=== PATIENT | female | born 2000 | race Caucasian/White ===

== ENCOUNTER 2019-08-26 09:04 | Emergency (ER) | payer OTHER ==
[2019-08-26 09:08] VITALS: BP 136/56; PULSE 70; TEMP 98.5; BMI 42.4
[2019-08-26 09:31] LABS: PH,URINE 6.5 (5.0-8.0); URINE APPEARANCE CLEAR; URINE BILIRUBIN NEGATIVE (NEGATIVE); URINE COLOR YELLOW; URINE GLUCOSE (UA) NEGATIVE (NEGATIVE); URINE KETONE NEGATIVE (NEGATIVE); URINE LEUK ESTERASE TRACE (NEGATIVE); URINE NITRITE NEGATIVE (NEGATIVE); URINE PROTEIN TRACE (NEGATIVE); URINE UROBILINOGEN 0.2 mg/dL (0.2-1.0)
--- NOTE | 2019-08-26 10:03 | PDOC ---
History of Present Illness - General Chief Complaint: Pain Stated Complaint: ABD PAIN / LT KNEE PAIN Time Seen by Provider: 08/26/19 09:14 History Source: Patient Exam Limitations: Clinical Condition - History of Present Illness Travel History: No Initial Comments: 08/26/19 10:05 Patient with past medical history of PCOS not on meds and hypothyroidism with normal thyroid labs not on meds and remote history of PID present with complaint of 2-day history of suprapubic cramping abdominal pain which has been persistent with one episode of clear vomiting this morning. Patient also reported left thigh pain upon wake this morning radiating to left knee which has resolved now. Patient reported LMP starting yesterday. Denies fever, chills, nausea now, dizziness, weakness. Patient seeking and is sexually active without condoms. Timing/Duration: reports: constant Quality: reports: cramping Abdominal Pain Onset Location: reports: suprapubic Pain Radiation: reports: groin Activities at Onset: reports: none Treatment Prior to Arrive: improves with: other (none) Aggravating Factors: improves with: None Alleviating Factors: improves with: None Past History - Past Medical History Allergies/Adverse Reactions: Allergies Allergy/AdvReac Type Severity Reaction Status Date / Time No Known Allergies Allergy Verified 01/22/15 15:38 Home Medications: Ambulatory Orders No Home Medications 0 dose .ROUTE UTDICT 09/01/12 Ibuprofen 800 mg PO Q8H PRN #12 tablet 08/26/19 COPD: No Thyroid Disease: Yes (HYPO) - Immunization History Immunization Up to Date: Yes - Psycho Social/Smoking Cessation Hx Smoking Status: No Smoking History: Never smoked Number of Cigarettes Smoked Daily: 0 Hx Alcohol Use: No Substance Use Type: None Hx Substance Use Treatment: No Abd/GI Specific PMHX - Complaint Specific PMHX Colitis: No Diverticulitis: No Gall Bladder Disease: No GERD: No Hepatitis: No Irritable Bowel Synd (IBS): No Pancreatitis: No GI Ulcer Disease: No Review of Systems - Review of Systems Able to Perform ROS?: Yes Is the patient limited Lithuanian proficient: No Constitutional: No: Chills, Fever, Malaise HEENTM: No: Symptoms Reported, See HPI, Eye Pain, Blurred Vision, Tearing, Recent change in vision, Double Vision, Cataracts, Ear Pain, Ocular Prothesis, Ear Discharge, Nose Pain, Nose Congestion, Tinnitus, Nose Bleeding, Hearing Loss , Throat Pain, Throat Swelling, Mouth Pain, Dental Problems, Difficulty Swallowing, Mouth Swelling, Other Respiratory: No: Symptoms reported, See HPI, Cough, Orthopnea, Shortness of Breath, SOB with Exertion, SOB at Rest, Stridor, Wheezing, Productive cough, Hemoptysis, Other Cardiac (ROS): No: Symptoms Reported, See HPI, Chest Pain, Edema, Irregular Heart Rate, Lightheadedness, Palpitations, Syncope, Chest Tightness, Other ABD/GI: Yes: Symptoms Reported, See HPI, Nausea (resolved), Vomiting (1 episode clear vomit), Abdominal cramping (suprapubic tenderness). No: Abd. Pain w/ defecation, Blood Streaked Bowels, Constipated, Diarrhea, Difficulty Swallowing , Poor Appetite, Poor Fluid Intake, Rectal Bleeding Musculoskeletal: No: Symptoms Reported Integumentary: No: Symptoms Reported Neurological: No: Symptoms reported, Headache, Numbness, Paresthesia, Weakness, Dizziness All Other Systems: Reviewed and Negative *Physical Exam - Vital Signs Last Vital Signs Temp Pulse Resp BP Pulse Ox 98.5 F 70 18 136/56 L 98 08/26/19 09:06 08/26/19 09:06 08/26/19 09:06 08/26/19 09:06 08/26/19 09:06 - Physical Exam Comments: 08/26/19 10:04 GENERAL: Well developed, well nourished. Awake and alert. No acute distress. HEENT: Normocephalic, atraumatic. PERRLA, EOMI. No conjunctival pallor. Sclera are non-icteric. Moist mucous membranes. Oropharynx is clear. NECK: Supple. Full ROM. CARDIOVASCULAR: Regular rate and rhythm. No murmurs, rubs, or gallops. Distal pulses are 2+ and symmetric. PULMONARY: No evidence of respiratory distress. Lungs clear to auscultation bilaterally. No wheezing, rales or rhonchi. ABDOMINAL: Soft. Mild suprapubic tenderness. Non-distended. No rebound or guarding. No organomegaly. Normoactive bowel sounds. MUSCULOSKELETAL Normal range of motion at all joints. EXTREMITIES: No cyanosis. No clubbing. No edema. No calf tenderness. SKIN: Warm and dry. Normal capillary refill. NEUROLOGICAL: Alert, awake, appropriate. Gait is normal without ataxia. PSYCHIATRIC: Cooperative. Good eye contact. Appropriate mood General Appearance: Yes: Nourished, Appropriately Dressed. No: Apparent Distress ED Treatment Course - LABORATORY CBC & Chemistry Diagram: 08/26/19 09:47 08/26/19 09:47 - ADDITIONAL ORDERS Additional order review: Laboratory Results 08/26/19 08/26/19 09:17 09:17 Urine Color Yellow Urine Appearance Clear Urine pH 6.5 Ur Specific [place] 1.020 Urine Protein Trace Urine Glucose (UA) Negative Urine Ketones Negative Urine Blood 1+ H Urine Nitrite Negative Urine Bilirubin Negative Urine Urobilinogen 0.2 Ur Leukocyte Esterase Trace Urine HCG, Qual Negative Medical Decision Making - Medical Decision Making 08/26/19 10:07 Patient with past medical history of PCOS not on meds and hypothyroidism with normal thyroid labs not on meds and remote history of PID present with complaint of 2-day history of suprapubic cramping abdominal pain which has been persistent with one episode of clear vomiting this morning. Patient also reported left thigh pain upon wake this morning radiating to left knee which has resolved now. Patient reported LMP starting yesterday. Denies fever, chills, nausea now, dizziness, weakness. Patient seeking and is sexually active without condoms. Clinical exam significant for mild tenderness to suprapubic region without guarding or rebound. No tenderness to thigh area, knee or calf muscle. Symptoms likely of ovulatory pain versus UTI and leg pain caused by muscle cramps which has resolved. UA, urine culture, urine test, urine GC and Chl chest ordered. CBC and chemistry lab ordered. Treat based on lab results 08/26/19 11:35 UA shows no acute pathology. hcg neg. pelvic U/S unremarkable. GC/CHL pending. Patient abdominal pains likely ovulatory and stable for discharge on motrin prn for pain with [facility] f/u Discharge - Discharge Information Problems reviewed: Yes Clinical Impression/Diagnosis: Nausea, Dysmenorrhea Abdominal pain Qualifiers: Abdominal location: lower abdomen, unspecified Qualified Code(s): R10.30 - Lower abdominal pain, unspecified Condition: Improved Disposition: HOME - Admission No - Additional Discharge Information Prescriptions: Ibuprofen 800 mg PO Q8H PRN #12 tablet PRN Reason: pain - Follow up/Referral Referrals: Alin Rhodes [Primary Care Provider] - - Patient Discharge Instructions Patient Printed Discharge Instructions: DI for Dysmenorrhea Additional Instructions: Your lab work and ultrasound is normal. Your urine is sent for culture and you will be contacted with culture results. Your abdominal pain was likely caused by menstrual cramps. Take prescribed motrin as needed for pain. Follow-up with [facility] as discussed as soon as possible - Post Discharge Activity
[2019-08-26 10:05] LABS: BASO % 0.2 % (0-2.0); EOS % 0.6 % (0-4.5); HEMATOCRIT 40.8 % (32.4-45.2); HEMOGLOBIN 13.3 GM/dL (10.7-15.3); LYMPH % 11.1 % (8-40); MCH 30.2 pg (25.7-33.7); MCHC 32.7 g/dl (32.0-36.0); MEAN CELL VOLUME 92.4 fl (80-96); MEAN PLT VOLUME 8.2 fl (7.5-11.1); MONO % 4.6 % (3.8-10.2); NEUT % 83.5 % (42.8-82.8); PLATELET COUNT 400 K/MM3 (134-434); RBC 4.42 M/mm3 (3.60-5.2); RDW 14.5 % (11.6-15.6); WHITE BLOOD COUNT 12.4 K/mm3 (4.0-10.0)
[2019-08-26] MEDS ORDERED: ONDANSETRON *ODT* 4 MG TABLET SL ONE (10:28)
[2019-08-26] MEDS ORDERED: IBUPROFEN 400 MG TABLET (FP) PO ONE ×2 (10:28→10:29)
[2019-08-26] MEDS ORDERED: ONDANSETRON *ODT* 4 MG TABLET ONE (10:29)
[2019-08-26 10:42] LABS: ALBUMIN 3.8 g/dl (3.4-5.0); BILIRUBIN,TOTAL 0.4 mg/dL (0.2-1); BLOOD UREA NITROGEN 7.7 mg/dL (7-18); CALCIUM 8.9 mg/dL (8.5-10.1); CREATININE 0.7 mg/dL (0.55-1.3); POTASSIUM 4.5 mmol/L (3.5-5.1); TOT PROT 7.3 g/dl (6.4-8.2)
== END 2019-08-26 11:40 | disposition home or self-care (01) ==
LOC: JER 09:04
DX: N94.6 Dysmenorrhea, unspecified (principal); E03.9 Hypothyroidism, unspecified; E28.2 Polycystic ovarian syndrome
CPT/HCPCS: 36415; 76856-TC; 80053; 81003; 84703; 85025; 87086; 87491; 87591; 99283-25; Q0162

== ENCOUNTER 2024-06-03 00:09 | Emergency (ER) | payer OTHER ==
[2024-06-03 00:16] VITALS: BP 157/85; PULSE 91; RESP 18; TEMP 98.3; BMI 42.0
[2024-06-03] MEDS ORDERED: ACETAMINOPHEN 500 MG TABLET (FP) PO ONE (02:24)
== END 2024-06-03 02:39 | disposition home or self-care (01) ==
LOC: JER 00:09
PROC: 0HQ1XZZ Repair Face Skin, External Approach (ICD-10-PCS; principal; 2024-06-03)
DX: S01.81XA Laceration without foreign body of other part of head, initial encounter (principal); W26.8XXA Contact with other sharp object(s), not elsewhere classified, initial encounter
CPT/HCPCS: 99283-25